=== PATIENT | female | born 1985 | race Two or more races ===

== ENCOUNTER 2018-06-22 07:19 | Emergency (ER) | payer OTHER ==
[2018-06-22] MEDS ORDERED: Ketorolac Tromethamine 30 MG/ML VIAL ONE (08:03)
== END 2018-06-22 08:27 | disposition home or self-care (01) ==
LOC: ERS 07:19
DX: S16.1XXA Strain of muscle, fascia and tendon at neck level, initial encounter (principal); X50.1XXA Overexertion from prolonged static or awkward postures, initial encounter
CPT/HCPCS: 96372; J1885

== ENCOUNTER 2018-12-10 08:12 | Outpatient (CLI) | payer OTHER ==
--- NOTE | 2018-12-10 09:14 | MRI ---
FEXAM:MRI of right shoulder performed without contrast enhancement HISTORY: Right shoulder pain since June. COMPARISON: None FINDINGS:The AC joint is normal in appearance. The supra and infraspinatus tendons are intact. There is some mild edema changes associated the subac romial subdeltoid recess. Subscapularis muscle and tendon are intact and the biceps tendon is normal in position within the bic ipital groove. Inferior glenohumeral ligaments labral complex is normal. No signs of any labral injury. There is a s mall joint effusion present slightly more dense than typical. No abnormal marrow signal change. No other findings. IMPRESSION: 1. No evidence of rotator cuff or labral injury. 2. Small joint effusion slightly more prominent than typically seen but nonspecific. No other feature s that would suggest a capsulitis. 3. There are some mild edema changes associated subacromial subdeltoid bursa this could indicate some minimal bursitis type change.
== END 2018-12-10 08:13 | disposition home or self-care (01) ==
LOC: SCSMRI 08:12
PROVIDERS: ATTEND Family Medicine
DX: S46.911D Strain of unspecified muscle, fascia and tendon at shoulder and upper arm level, right arm, subsequent encounter (principal)

== ENCOUNTER 2019-01-05 12:20 | Outpatient (CLI) | payer OTHER ==
--- NOTE | 2019-01-06 07:42 | MRI ---
CERVICAL SPINE MRI NONCONTRAST: Date: 01/05/19 INDICATION: Neck injury with pain. FINDINGS: There is focal reversal of cervical curvature centered at the C4-5 level. At the C1-2, C2-3, C3-4, an d C4-5 levels, there is no significant central canal or neural foraminal stenosis. C5-6: There is a minimal disc bulge effacing the ventral thecal sac without high grade central canal stenosis. C6-7: Central disc protrusion mildly effaces the ventral thecal sac without significant cord deformi ty. No high grade foraminal stenosis. C7-T1: Minimal disc bulge without significant central canal or neural foraminal stenosis. No acute marrow edema. No evidence of compression deformity or significant subluxation. IMPRESSION: Minimal disc degenerative disease is present at the mid to lower cervical spine. A small disc protrus ion at the C6-7 level, within the central zone, may relate to an acute process given intrinsic T2 hyp erintense signal and may account for patient's pain. This does not result in significant mass effect. As necessary, imaging follow-up may be obtained. POS: [facility]
== END 2019-01-05 12:21 | disposition home or self-care (01) ==
LOC: SCSMRI 12:20
PROVIDERS: ATTEND Family Medicine
DX: M54.2 Cervicalgia (principal); R20.2 Paresthesia of skin; M50.30 Other cervical disc degeneration, unspecified cervical region; M50.223 Other cervical disc displacement at C6-C7 level
CPT/HCPCS: 72141